=== PATIENT | male | born 1990 | race African-American/Black ===

== ENCOUNTER 2021-02-10 11:40 | Emergency (ER) | payer SELFPAY ==
[2021-02-11 13:28] LABS: SARS-CoV-2 PCR by NAA Not Detected (NotDetected)
== END 2021-02-10 13:20 | disposition home or self-care (01) ==
LOC: CSHERS 11:40
DX: J06.9 Acute upper respiratory infection, unspecified (principal); F17.210 Nicotine dependence, cigarettes, uncomplicated; Z20.822 Contact with and (suspected) exposure to COVID-19
CPT/HCPCS: 99283; U0003; U0005

== ENCOUNTER 2021-04-07 15:55 | Emergency (ER) | payer SELFPAY ==
[2021-04-08 14:25] LABS: SARS-CoV-2 PCR by NAA DETECTED (NotDetected)
== END 2021-04-07 17:25 | disposition home or self-care (01) ==
LOC: CSHERS 15:55
DX: U07.1 COVID-19 (principal); F17.210 Nicotine dependence, cigarettes, uncomplicated
CPT/HCPCS: 99283; U0003; U0005